=== PATIENT | female | born 1950 | race Caucasian/White ===

== ENCOUNTER 2018-05-12 12:16 | Emergency (ER) | payer MEDICARE ==
[2018-05-12 13:09] VITALS: BP 139/58
--- NOTE | 2018-05-12 13:19 | UC ---
UC General HPI - HPI Summary HPI Summary: PT C/O 8 DAY HX COUGH, CHEST CONGESTION AND DARK, THICK-GREEN SPUTUM. SOME SUBJECTIVE FEVER AND CHILLS. NO CP OR SOB. DENIES HX COPD/ASTHMA. COUGH KEEPS AWAKE. - History of Current Complaint Chief Complaint: UCRespiratory Stated Complaint: SINUSES, COUGH Time Seen by Provider: 05/12/18 12:52 Hx Obtained From: Patient Onset/Duration: Gradual Onset Timing: Constant Pain Intensity: 0 - Allergy/Home Medications Allergies/Adverse Reactions: Allergies Allergy/AdvReac Type Severity Reaction Status Date / Time No Known Allergies Allergy Verified 05/12/18 13:02 Home Medications: Home Medications Aspirin 81 mg CHEW TAB* [Aspirin Low Dose TAB*] 81 mg PO DAILY 05/12/18 [ History Confirmed 05/12/18] Cyanocobalamin (Vitamin B-12) [Vitamin B-12] 1,000 mcg PO DAILY 05/12/18 [ History Confirmed 05/12/18] GuaiFENesin DM* [Robitussin DM*] 10 ml PO Q6H PRN 05/12/18 [History Confirmed ] Naproxen Sodium [Aleve] 220 mg PO DAILY PRN 05/12/18 [History Confirmed 05/12/18 ] PMH/Surg Hx/FS Hx/Imm Hx Previously Healthy: Yes - Surgical History Surgical History: Yes Surgery Procedure, Year, and Place: R knee arthroscopy - Social History Lives: With Family Alcohol Use: None Substance Use Type: None Smoking Status (MU): Light Every Day Tobacco Smoker Type: Cigarettes Amount Used/How Often: 4-5 cigarettes daily Review of Systems All Other Systems Reviewed And Are Negative: Yes Constitutional: Positive: Negative Skin: Positive: Negative Eyes: Positive: Negative ENT: Positive: Negative Respiratory: Positive: Shortness Of Breath, Cough Cardiovascular: Positive: Negative Gastrointestinal: Positive: Negative Genitourinary: Positive: Negative Motor: Positive: Negative Neurovascular: Positive: Negative Musculoskeletal: Positive: Negative Neurological: Positive: Negative Psychological: Positive: Negative Physical Exam Triage Information Reviewed: Yes Appearance: Well-Appearing Vital Signs: Initial Vital Signs Temp 97.5 F 05/12/18 13:05 Pulse 88 05/12/18 13:05 Resp 14 05/12/18 13:05 BP 139/58 05/12/18 13:05 Pulse Ox 96 05/12/18 13:05 Vital Signs Reviewed: Yes Eyes: Positive: Conjunctiva Clear ENT: Positive: Pharynx normal, TMs normal. Negative: Nasal congestion, Nasal drainage Neck: Positive: Supple, Nontender, No Lymphadenopathy Respiratory: Positive: No respiratory distress, Decreased breath sounds - MILD, Other: - HARSH CONGESTED COUGH Cardiovascular: Positive: RRR, No Murmur Abdomen Description: Positive: Nontender, No Organomegaly, Soft Bowel Sounds: Positive: Present Musculoskeletal: Positive: ROM Intact Neurological: Positive: Alert Psychological: Positive: Age Appropriate Behavior Skin Exam: Normal Course/Dx - Course Course Of Treatment: 68 YO FEMALE WITH NON RESOLVING COUGH AND CONGESTION X 8 DAYS AND PURULENT SPUTUM. PT HAS SELF TX WITH MULTIPLE OTC MEDICATION AND GETS NO RELIEF. NO CONCERN FOR PNEUMONIA, NON TOXIC AND NOPT HYPOXIC. WILL TX FOR PRESUMTIVE BACTERIAL BRONCHITIS. PT WILL ONLY TAKE A PCN GROUP ANTIBIOTIC THUS WILL TX WITH AUGMENTIN. - Differential Dx - Multi-Symptom Provider Diagnoses: BRONCHITIS Discharge - Sign-Out/Discharge Documenting (check all that apply): Patient Departure All imaging exams completed and their final reports reviewed: No Studies - Discharge Plan Condition: Stable Disposition: HOME Prescriptions: Amoxicillin/Clavulanate TAB* [Augmentin TAB 875*] 875 mg PO BID 7 Days #14 tab Patient Education Materials: Acute Bronchitis (ED) Referrals: MARGARET Day [Medical Doctor] - If Needed Additional Instructions: FOLLOW UP IN 5-7 DAYS IF NOT BETTER OR SOONER IF WORSE. - Billing Disposition and Condition Condition: STABLE Disposition: Home
== END 2018-05-12 13:27 | disposition home or self-care (01) ==
LOC: UCCORT 12:16
DX: J40 Bronchitis, not specified as acute or chronic (principal); F17.210 Nicotine dependence, cigarettes, uncomplicated; Z79.82 Long term (current) use of aspirin
CPT/HCPCS: 99202; G0463